=== PATIENT | female | born 1990 | race Caucasian/White ===

== ENCOUNTER 2021-03-02 13:24 | Outpatient (CLI) | payer MEDICAID ==
[2021-03-02] MEDS ORDERED: MONT10TA6 PO (14:02)
[2021-03-02] MEDS ORDERED: FERR-46 PO (14:02)
[2021-03-02] MEDS ORDERED: BUPR150T73 PO (14:02)
[2021-03-02] MEDS ORDERED: SERT100T PO (14:02)
[2021-03-02] MEDS ORDERED: OMEP20TA62 PO (14:02)
[2021-03-02] MEDS ORDERED: MULT-658 PO (14:02)
[2021-03-02] MEDS ORDERED: folate PO (14:02)
[2021-03-02] MEDS ORDERED: HYDR-826 PO (14:02)
== END 2021-03-02 23:59 | disposition home or self-care (01) ==
LOC: STAR 13:24
PROVIDERS: ATTEND Otolaryngology
DX: Z01.812 Encounter for preprocedural laboratory examination (principal); Z20.822 Contact with and (suspected) exposure to COVID-19; J32.4 Chronic pansinusitis
CPT/HCPCS: 36415; 87635

== ENCOUNTER 2021-03-06 08:12 | Day surgery (SDC) | payer MEDICAID ==
[~2021-03-06] VITALS: Ht 152.4 cm; Wt 81.5 kg
[~2021-03-06 08:12] MED LIST: BACITRACIN OINT 500U/GM, 15 GM ONE; BUPR150T73 PO; EPINEPHRINE 1 MG/ML, 1ML ONE; EPINEPHRINE TOPICAL SOLN 1 MG/ML, 30ML ONE; FERR-46 PO; FLUORESCEIN SODIUM 500 MG/5 ML ONE; HYDR-826 PO; LIDOCAINE/PF 1%, 30ML ONE; MONT10TA6 PO; MULT-658 PO; OMEP20TA62 PO; SERT100T PO; folate PO
[2021-03-06 08:41] VITALS: BP 110/77
[2021-03-06 08:59] LABS: HCG UR SG 1.014 (1.003-1.030)
[2021-03-06] MEDS ORDERED: LACTATED RINGERS 1,000 ML IV SCH (09:00)
[2021-03-06] MEDS ORDERED: CHLORHEXIDINE 15 ML UDC PO ONE (09:00)
[2021-03-06] MEDS ORDERED: MIDAZOLAM 1 MG/ML, 2ML ONE (10:07)
[2021-03-06] MEDS ORDERED: FENTANYL PF 250 MCG/5ML ONE ×3 (10:07→12:43)
[2021-03-06] MEDS ORDERED: PROPOFOL 10 MG/ML, 20ML ONE (10:08)
[2021-03-06] MEDS ORDERED: CEFAZOLIN 1,000 MG ONE (10:08)
[2021-03-06] MEDS ORDERED: ROCURONIUM 10MG/ML,5ML ONE (10:08)
[2021-03-06] MEDS ORDERED: ONDANSETRON 2MG/ML, 2ML ONE (10:08)
[2021-03-06] MEDS ORDERED: NEOSTIGMINE 1 MG/ML, 10ML ONE (10:08)
[2021-03-06] MEDS ORDERED: GLYCOPYRROLATE 0.2MG/1ML, 5ML ONE (10:08)
[2021-03-06] MEDS ORDERED: PROMETHAZINE 25 MG/ML, 1ML IVPush PRN (11:00)
[2021-03-06] MEDS ORDERED: morphine SULFATE 10 MG/ML, 1ML IVPush PRN (11:00)
[2021-03-06] MEDS ORDERED: ACETAMINOPHEN 325 MG TABLET PO PRN (11:00)
[2021-03-06] MEDS ORDERED: FENTANYL PF 100 MCG/2ML IV PRN (11:00)
[2021-03-06] MEDS ORDERED: MEPERIDINE/PF 25MG/0.5ML IVPush PRN (11:00)
[2021-03-06] MEDS ORDERED: OXYcodone 5 MG/5 ML ORAL.SOL UDC PO PRN (11:00)
[2021-03-06] MEDS ORDERED: LABETALOL 5MG/ML, 20ML IV PRN (11:00)
[2021-03-06] MEDS ORDERED: HYDROmorphone 1 MG/ML, 1ML INJ IVPush PRN (11:00)
[2021-03-06] MEDS ORDERED: HALOPERIDOL 5 MG/ML IV PRN (11:00)
[2021-03-06] MEDS ORDERED: hydrALAzine 20 MG/ML, 1ML IV PRN (11:00)
[2021-03-06] MEDS ORDERED: PROMETHAZINE 25 MG/ML, 1ML ONE (14:45)
[2021-03-06] MEDS ORDERED: ACETAMINOPHEN 650 MG/20.3 ML UDC ONE (15:30)
[2021-03-06] MEDS ORDERED: SCOPOLAMINE 1MG PATCH TD ONE ×2 (16:21→16:30)
[2021-03-06] MEDS ORDERED: DIPHENHYDRAMINE 50 MG/ML, 1ML ONE (16:21)
[2021-03-06] MEDS ORDERED: DIPHENHYDRAMINE 50 MG/ML, 1ML IVPush PRN (16:30)
== END 2021-03-06 20:50 | disposition home or self-care (01) ==
LOC: OUT 08:12
PROVIDERS: ATTEND Otolaryngology
DX: J01.00 Acute maxillary sinusitis, unspecified (principal); J32.0 Chronic maxillary sinusitis; J32.4 Chronic pansinusitis; J33.8 Other polyp of sinus; F41.9 Anxiety disorder, unspecified; F32.9 Major depressive disorder, single episode, unspecified; K21.9 Gastro-esophageal reflux disease without esophagitis; Z79.899 Other long term (current) drug therapy; Z90.49 Acquired absence of other specified parts of digestive tract
CPT/HCPCS: 30520; 31240; 31253; 31257; 31267; 81025; 87070; 87075; 87205; 88304; 88311; J0171; J0690; J1200; J2250; J2405; J2550; J2704; J2710; J3010; J7120; J7402; 87186

== ENCOUNTER 2021-03-13 09:03 | Day surgery (SDC) | payer MEDICAID ==
[~2021-03-13] VITALS: Ht 152.4 cm; Wt 81.8 kg
[~2021-03-13 09:03] MED LIST changes: -BACITRACIN OINT 500U/GM, 15 GM ONE; -EPINEPHRINE 1 MG/ML, 1ML ONE; -EPINEPHRINE TOPICAL SOLN 1 MG/ML, 30ML ONE; -FLUORESCEIN SODIUM 500 MG/5 ML ONE; -LIDOCAINE/PF 1%, 30ML ONE
[2021-03-13 09:36] VITALS: BP 114/76
[2021-03-13] MEDS ORDERED: OXYMETAZOLINE NASAL SPRAY 0.05%,30ML ONE (09:53)
== END 2021-03-13 11:05 | disposition home or self-care (01) ==
LOC: OUT 09:03
PROVIDERS: ATTEND Otolaryngology
DX: J32.4 Chronic pansinusitis (principal); Z20.822 Contact with and (suspected) exposure to COVID-19; Z79.899 Other long term (current) drug therapy
CPT/HCPCS: 87635